=== PATIENT | female | born 1940 | race African-American/Black ===

== ENCOUNTER 2017-11-03 18:18 | Emergency (ER) | payer OTHER, BC ==
[~2017-11-03] VITALS: Ht 162.6 cm; Wt 86.2 kg
[2017-11-03 18:28] VITALS: Ht 162.6 cm; Wt 86.2 kg
[2017-11-03 19:36] LABS: BASOPHIL % 1.1 % (0-2); PLATELET COUNT 142 x10^3mcL (130-400)
[2017-11-03 20:02] LABS: CALCIUM 9.7 mg/dL (8.5-10.1); CARBON DIOXIDE 25.5 mmol/L (21-32); CHLORIDE SERUM 105 mmol/L (98-107); GLUCOSE SERUM 82 mg/dL (74-106); POTASSIUM SERUM 3.8 mmol/L (3.5-5.1); SODIUM SERUM 139 mmol/L (136-145)
[2017-11-03 20:03] LABS: RED CELL DISTRIBUTION WIDTH 15.1 % (11.5-14.5)
[2017-11-03 20:08] LABS: ALBUMIN 3.4 g/dL (3.4-5.0); ALKALINE PHOSPHATASE 73 U/L (46-116); ALT/SGPT 27 U/L (14-59); AST/SGOT 23 U/L (15-37); BILIRUBIN TOTAL 0.7 mg/dL (0.20-1.00)
[2017-11-03 20:59] VITALS: BP 185/88
== END 2017-11-03 20:40 | disposition home or self-care (01) ==
LOC: ED 18:18
PROVIDERS: Emergency Medicine
DX: H53.2 Diplopia (principal); I10 Essential (primary) hypertension; E11.9 Type 2 diabetes mellitus without complications; K21.9 Gastro-esophageal reflux disease without esophagitis
CPT/HCPCS: 36415; Q0092

== ENCOUNTER 2018-09-24 08:01 | Emergency (ER) | payer OTHER, BC ==
[~2018-09-24] VITALS: Ht 165.1 cm; Wt 82.1 kg
[2018-09-24 08:04] VITALS: Ht 165.1 cm; Wt 82.1 kg
[2018-09-24 08:35] VITALS: BP 143/90
== END 2018-09-24 08:35 | disposition home or self-care (01) ==
LOC: ED 08:01
DX: S80.812A Abrasion, left lower leg, initial encounter (principal); I10 Essential (primary) hypertension; E11.9 Type 2 diabetes mellitus without complications; K21.9 Gastro-esophageal reflux disease without esophagitis; W57.XXXA Bitten or stung by nonvenomous insect and other nonvenomous arthropods, initial encounter; Y93.89 Activity, other specified; Y92.89 Other specified places as the place of occurrence of the external cause; Y99.8 Other external cause status